=== PATIENT | male | born 1995 | race Caucasian/White ===

== ENCOUNTER 2017-07-01 16:36 | Emergency (ER) | payer OTHER ==
[~2017-07-01] VITALS: Ht 177.8 cm; Wt 80.0 kg
[2017-07-01] MEDS ORDERED: BUPIVAcaine/PF 2.5 mg/ml (0.25%) 30ml vial IJ ONE (18:45)
[2017-07-01] MEDS ORDERED: TETanus/Pertussis (Acell)/Diphther VAC/PF (Tdap-Adult) 0.5ml syringe IM ONE (18:45)
[2017-07-01] MEDS ORDERED: bacitracin 15gm ointment TP ONE (20:05)
[2017-07-01] MEDS ORDERED: IBUP-1986 PO (20:26)
[2017-07-01] MEDS ORDERED: CEPH500C2 PO (20:36)
[2017-07-01 20:56] VITALS: BP 124/72
== END 2017-07-01 20:59 | disposition home or self-care (01) ==
LOC: ER 16:37
DX: L60.0 Ingrowing nail (principal)
CPT/HCPCS: 11750; 90471; 90715; 99284; A6255; A6449; J3490

== ENCOUNTER 2017-07-13 20:53 | Emergency (ER) | payer OTHER ==
[~2017-07-13] VITALS: Ht 177.8 cm; Wt 79.6 kg
[~2017-07-13 20:53] MED LIST: CEPH500C2 PO; IBUP-1986 PO
[2017-07-13] MEDS ORDERED: azithromycin 250mg tablet PO ONE (23:50)
[2017-07-13] MEDS ORDERED: DOXY100C43 PO (23:59)
[2017-07-14] MEDS ORDERED: CefTRIAXone 250MG inj IM ONE
[2017-07-14] MEDS ORDERED: azithromycin 250mg tablet PO ONE
[2017-07-14] MEDS ORDERED: CefTRIAXone 250MG IM Kit w/LIDOcaine IM ONE (00:10)
[2017-07-14 00:40] VITALS: BP 123/66
== END 2017-07-14 00:35 | disposition home or self-care (01) ==
LOC: ER 20:53
DX: N45.1 Epididymitis (principal); Z79.899 Other long term (current) drug therapy
CPT/HCPCS: 96372; 99283; J0696

== ENCOUNTER 2019-01-27 10:25 | Emergency (ER) | payer BC, MEDICAID ==
[~2019-01-27] VITALS: Ht 177.8 cm; Wt 80.0 kg
[~2019-01-27 10:25] MED LIST changes: -CEPH500C2 PO
[2019-01-27] MEDS ORDERED: ondansetron/PF 4mg/2ml inj IV ONE (10:45)
[2019-01-27] MEDS ORDERED: normal saline 1000ML IV soln IVB ONE (10:45)
[2019-01-27 11:18] LABS: BASOPHILS % (AUTO) 0.5 % (0-1); EOSINOPHILS % (AUTO) 0.3 % (0-6); HEMATOCRIT 50.8 % (42.0-52.0); HEMOGLOBIN 17.9 g/dl (14.0-17.9); LYMPHOCYTES # (AUTO) 1.5 X10'3 (1.1-4.8); LYMPHOCYTES % (AUTO) 25.5 % (21-51); MEAN CORPUSCULAR HEMOGLOBIN 29.7 PG (27.0-31.0); MEAN CORPUSCULAR HGB CONC 35.2 g/dL (33.0-36.5); MEAN CORPUSCULAR VOLUME 84.3 FL (78-98); MEAN PLATELET VOLUME 7.9 FL (7.4-10.4); MONOCYTES # (AUTO) 0.4 X10'3 (0-0.9); MONOCYTES % (AUTO) 7.3 % (2-12); NEUTROPHILS # (AUTO) 3.8 X10'3 (1.8-7.7); NEUTROPHILS % (AUTO) 66.4 % (42-75); PLATELET COUNT 252 X10'3 (140-440); RED BLOOD COUNT 6.02 X10'6 (4.70-6.10); RED CELL DISTRIBUTION WIDTH 12.8 % (11.5-14.5); WHITE BLOOD COUNT 5.7 X10'3 (4.5-11.0)
[2019-01-27 11:27] LABS: ALANINE AMINOTRANSFERASE 24 U/L (12-78); ALBUMIN 4.3 G/DL (3.4-5.0); ALBUMIN/GLOBULIN RATIO 1.2 (1.1-1.5); ALKALINE PHOSPHATASE 81 IU/L (46-116); ANION GAP 10 (8-16); ASPARTATE AMINO TRANSFERASE 17 U/L (10-37); BILIRUBIN,TOTAL 1.1 MG/DL (0.1-1.0); BLOOD UREA NITROGEN 14 MG/DL (7-18); BUN/CREATININE RATIO 11.7 (5.4-32.0); CALCIUM 9.7 MG/DL (8.5-10.1); CHLORIDE 103 MMOL/L (99-107); GLUCOSE 96 MG/DL (70-104); LIPASE 76 U/L (73-393); POTASSIUM 3.9 MMOL/L (3.5-5.1); SODIUM 142 MMOL/L (135-145); eGFR 76 ML/MIN
[2019-01-27] MEDS ORDERED: DEXL60CA3 PO (11:54)
[2019-01-27 11:59] VITALS: BP 124/72
== END 2019-01-27 12:08 | disposition home or self-care (01) ==
LOC: ER 10:26
DX: K21.9 Gastro-esophageal reflux disease without esophagitis (principal); R11.2 Nausea with vomiting, unspecified; Z79.899 Other long term (current) drug therapy
CPT/HCPCS: 36415; 80053; 83690; 85025; 96361; 96374; 99283; J2405; J7030

== ENCOUNTER 2019-03-30 11:07 | Emergency (ER) | payer BC ==
[~2019-03-30] VITALS: Ht 177.8 cm; Wt 72.0 kg
[~2019-03-30 11:07] MED LIST changes: +DEXL60CA3 PO
[2019-03-30 12:34] LABS: BASOPHILS % (AUTO) 0.2 % (0-1); EOSINOPHILS % (AUTO) 0 % (0-6); HEMATOCRIT 45.8 % (42.0-52.0); HEMOGLOBIN 15.9 g/dl (14.0-17.9); LYMPHOCYTES % (AUTO) 13.7 % (21-51); MEAN CORPUSCULAR HEMOGLOBIN 29.5 PG (27.0-31.0); MEAN CORPUSCULAR HGB CONC 34.7 g/dL (33.0-36.5); MEAN CORPUSCULAR VOLUME 85.1 FL (78-98); MEAN PLATELET VOLUME 8.3 FL (7.4-10.4); MONOCYTES # (AUTO) 0.4 X10'3 (0-0.9); MONOCYTES % (AUTO) 5.3 % (2-12); NEUTROPHILS # (AUTO) 5.6 X10'3 (1.8-7.7); NEUTROPHILS % (AUTO) 80.8 % (42-75); PLATELET COUNT 234 X10'3 (140-440); RED BLOOD COUNT 5.38 X10'6 (4.70-6.10); RED CELL DISTRIBUTION WIDTH 13.4 % (11.5-14.5)
[2019-03-30] MEDS ORDERED: METR500T PO (12:49)
[2019-03-30] MEDS ORDERED: CLAR500T PO (12:49)
[2019-03-30 12:51] LABS: ALANINE AMINOTRANSFERASE 23 U/L (12-78); ALBUMIN 4.3 G/DL (3.4-5.0); ALBUMIN/GLOBULIN RATIO 1.2 (1.1-1.5); ALKALINE PHOSPHATASE 67 IU/L (46-116); ANION GAP 8 (8-16); ASPARTATE AMINO TRANSFERASE 20 U/L (10-37); BILIRUBIN,TOTAL 0.9 MG/DL (0.1-1.0); BLOOD UREA NITROGEN 11 MG/DL (7-18); BUN/CREATININE RATIO 12.6 (5.4-32.0); CALCIUM 9.1 MG/DL (8.5-10.1); CHLORIDE 104 MMOL/L (99-107); CREATININE 0.87 MG/DL (0.60-1.10); GLUCOSE 90 MG/DL (70-104); LIPASE 144 U/L (73-393); POTASSIUM 4.3 MMOL/L (3.5-5.1); SODIUM 141 MMOL/L (135-145); TOTAL CARBON DIOXIDE 28.8 MMOL/L (24-32); TOTAL PROTEIN 7.8 G/DL (6.4-8.2); eGFR > 90 ML/MIN
[2019-03-30] MEDS ORDERED: clarithromycin 250mg tablet PO SCH (12:55)
[2019-03-30] MEDS ORDERED: LIDOcaine Viscous 15ml cup MM PRN (12:55)
[2019-03-30] MEDS ORDERED: mag hydrox/Alum hydrox/simeth 30ml oral suspension PO ONE (12:55)
[2019-03-30] MEDS ORDERED: metroNIDAZOLE 500mg tablet PO ONE (12:55)
[2019-03-30 13:00] LABS: CLARITY,URINE CLEAR (Clear); COLOR,URINE YELLOW (Yellow); GLUCOSE, URINE NEGATIVE (Neg); KETONES,URINE NEGATIVE (Neg); LEUKOCYTE ESTERASE ,URINE NEGATIVE (Neg); NITRITES, URINE NEGATIVE (Neg); OCCULT BLOOD,URINE NEGATIVE (Neg); PH,URINE 7.5 (4.8-8.0); PROTEIN,URINE NEGATIVE (Neg)
[2019-03-30 13:02] LABS: UA COLLECTION TYPE CLN CATCH MIDSTREAM
[2019-03-30 13:06] VITALS: BP 131/66
== END 2019-03-30 13:46 | disposition home or self-care (01) ==
LOC: ER 11:07
DX: K29.70 Gastritis, unspecified, without bleeding (principal); K21.9 Gastro-esophageal reflux disease without esophagitis; Z79.899 Other long term (current) drug therapy
CPT/HCPCS: 36415; 80053; 81003; 83690; 85025; 99284; J3490

== ENCOUNTER 2019-04-01 19:27 | Emergency (ER) | payer BC ==
[~2019-04-01] VITALS: Ht 177.8 cm; Wt 69.4 kg
[~2019-04-01 19:27] MED LIST changes: +CLAR500T PO; +METR500T PO
[2019-04-01 19:39] VITALS: BP 112/78
[2019-04-01] MEDS ORDERED: AMOX500C2 PO (20:31)
== END 2019-04-01 20:39 | disposition home or self-care (01) ==
LOC: ER 19:27
DX: K30 Functional dyspepsia (principal); T50.995A Adverse effect of other drugs, medicaments and biological substances, initial encounter; K21.9 Gastro-esophageal reflux disease without esophagitis; Y92.89 Other specified places as the place of occurrence of the external cause; Z79.899 Other long term (current) drug therapy
CPT/HCPCS: 99283

== ENCOUNTER 2019-04-03 13:14 | Emergency (ER) | payer BC ==
[~2019-04-03] VITALS: Ht 177.8 cm; Wt 68.2 kg
[~2019-04-03 13:14] MED LIST changes: +AMOX500C2 PO
[2019-04-03 13:23] VITALS: BP 110/78
== END 2019-04-03 14:40 | disposition home or self-care (01) ==
LOC: ER 13:15
DX: R11.2 Nausea with vomiting, unspecified (principal); T37.3X5A Adverse effect of other antiprotozoal drugs, initial encounter; K21.9 Gastro-esophageal reflux disease without esophagitis; Z79.899 Other long term (current) drug therapy; Y92.89 Other specified places as the place of occurrence of the external cause
CPT/HCPCS: 99281

== ENCOUNTER 2019-05-26 16:03 | Emergency (ER) | payer BC ==
[~2019-05-26] VITALS: Ht 177.8 cm; Wt 68.2 kg
[~2019-05-26 16:03] MED LIST changes: -AMOX500C2 PO; -CLAR500T PO; -METR500T PO
[2019-05-26] MEDS ORDERED: normal saline 1000ML IV soln IVB ONE (16:25)
[2019-05-26] MEDS ORDERED: dicyclomine 10 MG capsule PO ONE (16:25)
[2019-05-26] MEDS ORDERED: ondansetron/PF 4mg/2ml inj IV ONE (16:25)
[2019-05-26 16:42] LABS: BASOPHILS # (AUTO) 0.1 X10'3 (0-0.2); BASOPHILS % (AUTO) 0.7 % (0-1); EOSINOPHILS # (AUTO) 0.1 X10'3 (0-0.9); EOSINOPHILS % (AUTO) 0.8 % (0-6); HEMATOCRIT 46.1 % (42.0-52.0); HEMOGLOBIN 16.2 g/dl (14.0-17.9); LYMPHOCYTES # (AUTO) 2.2 X10'3 (1.1-4.8); LYMPHOCYTES % (AUTO) 28.7 % (21-51); MEAN CORPUSCULAR HEMOGLOBIN 30.2 PG (27.0-31.0); MEAN CORPUSCULAR HGB CONC 35.1 g/dL (33.0-36.5); MEAN CORPUSCULAR VOLUME 86.1 FL (78-98); MEAN PLATELET VOLUME 8.1 FL (7.4-10.4); MONOCYTES # (AUTO) 0.6 X10'3 (0-0.9); MONOCYTES % (AUTO) 7.3 % (2-12); NEUTROPHILS # (AUTO) 4.9 X10'3 (1.8-7.7); NEUTROPHILS % (AUTO) 62.5 % (42-75); PLATELET COUNT 218 X10'3 (140-440); RED BLOOD COUNT 5.36 X10'6 (4.70-6.10); WHITE BLOOD COUNT 7.8 X10'3 (4.5-11.0)
[2019-05-26 16:57] VITALS: BP 115/70
[2019-05-26 16:57] LABS: ALANINE AMINOTRANSFERASE 22 U/L (12-78); ALBUMIN 4.2 G/DL (3.4-5.0); ALBUMIN/GLOBULIN RATIO 1.2 (1.1-1.5); ALKALINE PHOSPHATASE 66 IU/L (46-116); ANION GAP 8 (8-16); ASPARTATE AMINO TRANSFERASE 20 U/L (10-37); BILIRUBIN,TOTAL 0.9 MG/DL (0.1-1.0); BLOOD UREA NITROGEN 11 MG/DL (7-18); BUN/CREATININE RATIO 11.1 (5.4-32.0); CALCIUM 9.1 MG/DL (8.5-10.1); CHLORIDE 104 MMOL/L (99-107); CREATININE 0.99 MG/DL (0.60-1.10); GLUCOSE 96 MG/DL (70-104); LIPASE 140 U/L (73-393); SODIUM 142 MMOL/L (135-145); TOTAL CARBON DIOXIDE 30.4 MMOL/L (24-32); TOTAL PROTEIN 7.6 G/DL (6.4-8.2); eGFR > 90 ML/MIN
[2019-05-26 16:59] LABS: POTASSIUM 3.5 MMOL/L (3.5-5.1)
[2019-05-26 17:08] LABS: CLARITY,URINE SLIGHTLY CLOUDY (Clear); COLOR,URINE YELLOW (Yellow); GLUCOSE, URINE NEGATIVE (Neg); KETONES,URINE NEGATIVE (Neg); LEUKOCYTE ESTERASE ,URINE NEGATIVE (Neg); NITRITES, URINE NEGATIVE (Neg); OCCULT BLOOD,URINE NEGATIVE (Neg); PH,URINE 6.5 (4.8-8.0); PROTEIN,URINE NEGATIVE (Neg)
[2019-05-26 17:16] LABS: UA COLLECTION TYPE NON-SPECIFIED
[2019-05-26 17:17] LABS: AMORPHOUS URATES 1+; MUCUS STRANDS FEW /LPF (Neg); SQUAMOUS EPITHELIAL CELL,UR NONE SEEN /LPF (FEW)
[2019-05-26 17:18] LABS: BACTERIA,URINE FEW /HPF (Neg); RBC,URINE 0-2 /HPF (0-2); WBC,URINE 0-4 /HPF (0-4)
[2019-05-26] MEDS ORDERED: DEXL30CA3 PO (17:27)
== END 2019-05-26 18:03 | disposition home or self-care (01) ==
LOC: ER 16:03
DX: R10.33 Periumbilical pain (principal); K21.9 Gastro-esophageal reflux disease without esophagitis; Z79.899 Other long term (current) drug therapy; Z88.1 Allergy status to other antibiotic agents
CPT/HCPCS: 36415; 80053; 81001; 83690; 85025; 96374; 99283; J2405; J7030